=== PATIENT | male | born 1960 | race Caucasian/White ===

== ENCOUNTER 2017-12-21 10:14 | Observation (INO) ==
--- NOTE | 2017-12-21 12:02 | XR ---
EXAM DATE: 12/21/2017 11:44 AM EDT AGE/SEX: 57 years / Male INDICATIONS: Chest and jaw pain. CLINICAL DATA: This is the patient's initial encounter. Patient reports that signs and symptoms have been present for 2 days and indicates a pain score of 3/10. MEDICAL/SURGICAL HISTORY: None. None. COMPARISON: No prior exams available for comparison. FINDINGS: A single AP view of the chest demonstrates the lungs to be symmetrically aerated without evidence of mass, infiltrate or effusion. The cardiomediastinal contours are unremarkable. Osseous structures a re intact. CONCLUSION: Negative examination. Electronically signed by: Live Negron MD 12/21/2017 11:47 AM EDT
--- NOTE | 2017-12-21 12:06 | ED ---
HPI General Chief complaint: Respiratory Symptoms Stated complaint: Chest Pain Time Seen by Provider: 12/21/17 11:23 Source: patient Mode of arrival: ambulatory Limitations: no limitations History of Present Illness HPI narrative: Patient is a 57 year old male who comes in complaining of chest pain and shortness of breath. He says since 2 AM he has felt a squeezing in his chest that mostly comes on when he tries to breath. He says the pain is in the center of his chest and it radiates up to his jaw. He says that he has to walk slowly because the walking brings on the pain. He denies nausea or vomiting. He denies leg swelling or pain. He takes a baby aspirin in the morning. He says he has never had this before. He denies cough or cold symptoms. Severity is mild to moderate. Related Data Home Medications Medication Instructions Recorded Confirmed aspirin 81 mg PO DAILY 12/21/17 12/21/17 Previous Rx's Medication Instructions Recorded lisinopril 10 mg PO DAILY #30 tab 12/22/17 Allergies Allergy/AdvReac Type Severity Reaction Status Date / Time No Known Allergies Allergy Unverified 12/21/17 11:19 Review of Systems Except as stated in HPI: all other systems reviewed are negative Constitutional Denies chills and Denies fever(s) Eyes Denies blurry vision ENT Denies dizziness Cardiovascular Reports chest pain Respiratory Denies cough and Reports dyspnea on exertion Gastrointestinal Denies nausea and Denies vomiting Musculoskeletal Denies myalgias and Denies arthralgias Integumentary/Breasts Denies change in pigmentation and Denies lesions Neurologic Denies focal weakness and Denies numbness [facility] Medical History Medical History HTN (hypertension) (Acute) Stroke (Acute) Surgical History Surgical History Hx of appendectomy (Acute) Social History Social History Substance History: No History of Abuse Second Hand Smoke Exposure: No Smoking Status: Never smoker How Often Do You Have a Drink Containing Alcohol: Never Hx Recent Travel: No Recent Travel in [facility] within the Last 8 Weeks: No Recent Out of Country Travel within the Last 8 Weeks: No Immunization History Tetanus Immunization: Unsure Hx Influenza Vaccine This Season: No Exam Narrative Exam Narrative: GENERAL: Awake and alert, in no acute distress. SKIN: Focused skin assessment warm/dry. HEAD: Atraumatic. Normocephalic. EYES: Pupils equal and round. No scleral icterus. ENT: Mucous membranes pink and moist. NECK: Trachea midline. No JVD. CARDIOVASCULAR: Regular rate and rhythm. No murmur appreciated. RESPIRATORY: No accessory muscle use. Clear to auscultation. Breath sounds equal bilaterally. GASTROINTESTINAL: Abdomen soft, non-tender, nondistended. MUSCULOSKELETAL: No obvious deformities. No clubbing. No cyanosis. No edema. NEUROLOGICAL: Awake and alert. No obvious cranial nerve deficits. Motor grossly within normal limits. Normal speech. PSYCHIATRIC: Appropriate mood and affect; insight and judgment normal. Course Initial Documented Vital Signs Temperature 99.1 F 12/21/17 10:23 Pulse Rate 88 12/21/17 10:23 Respiratory Rate 18 12/21/17 10:23 Blood Pressure 159/94 H 12/21/17 10:23 Pulse Oximetry 97 12/21/17 10:23 Last Documented Vital Signs Temperature 97.9 F 12/22/17 12:00 Pulse Rate 79 12/22/17 12:00 Respiratory Rate 16 12/22/17 12:00 Blood Pressure 139/97 H 12/22/17 12:00 Pulse Oximetry 97 12/22/17 12:00 Medical Decision Making MDM Narrative Medical decision making narrative: Patient is a 57 year old male who comes in complaining of chest pain and dyspnea on exertion. Exam shows no acute abnormalities. IV established, labs sent, patient connected to the youth nutritional monitor. Labs show no acute abnormalities. CTA performed shows no evidence of PE Given Aspirin and nitro. Patient did report some relief of symptoms from nitro. Placed in chest pain center for further management. Differential Diagnosis Differential Diagnosis: pneumonia vs ACS vs NSTEMI vs PE Medical Records Medical records reviewed: Yes I reviewed the patient's medical records. Lab Data Lab results reviewed: Yes I reviewed the patient's lab results. Result diagrams: 12/21/17 11:45 12/21/17 06:12 Lab Results 12/21/17 12/21/17 12/21/17 Range/Units 06:12 11:45 11:45 WBC 7.8 (4.0-11.0) th/mm3 RBC 4.77 (4.50-5.90) mil/mm3 Hgb 14.5 (13.0-17.0) gm/dL Hct 42.7 (39.0-51.0) % MCV 89.6 (80.0-100.0) fL MCH 30.4 (27.0-34.0) pg MCHC 33.9 (32.0-36.0) % RDW 14.0 (11.6-17.2) % Plt Count 259 (150-450) th/mm3 MPV 8.6 (7.0-11.0) fL Neut % (Auto) 65.6 (16.0-70.0) % Lymph % (Auto) 24.2 (9.0-44.0) % [place] % (Auto) 9.4 H (0.0-8.0) % Eos % (Auto) 0.5 (0.0-4.0) % Baso % (Auto) 0.3 (0.0-2.0) % Neut # (Auto) 5.1 (1.8-7.7) th/mm3 Lymph # (Auto) 1.9 (1.0-4.8) th/mm3 [place] # (Auto) 0.7 (0.0-0.9) th/mm3 Eos # (Auto) 0.0 (0.0-0.4) th/mm3 Baso # (Auto) 0.0 (0.0-0.2) th/mm3 WBC Differential . Differential Comment Auto diff final PT 10.3 (9.8-11.6) sec INR 1.0 Ratio APTT 25.4 (24.3-30.1) sec Sodium 138 (136-145) meq/L Potassium 4.5 (3.5-5.1) meq/L Chloride 102 (98-107) meq/L Carbon Dioxide 29.6 (21.0-32.0) meq/L Anion Gap 6 (5-15) meq/L BUN 14 (7-18) mg/dL Creatinine 1.22 (0.60-1.30) mg/dL Estimated GFR 61 L (>89) mL/min Random Glucose 80 (74-106) mg/dL Calcium 8.8 (8.5-10.1) mg/dL Total Bilirubin 0.5 (0.2-1.0) mg/dL AST 19 (15-37) U/L ALT 22 (12-78) U/L Alkaline Phosphatase 53 (45-117) U/L Total Creatine Kinase 225 (39-308) U/L CK-MB (CK-2) 1.8 (0.5-3.6) ng/mL Troponin I Less than 0.02 L (0.02-0.05) ng/mL B-Natriuretic Peptide (0-100) pg/mL Total Protein 8.3 H (6.4-8.2) g/dL Albumin 4.2 (3.4-5.0) g/dL Triglycerides (42-150) mg/dL Cholesterol (120-200) mg/dL LDL Cholesterol, Calc (0-99) mg/dL HDL Cholesterol (40.0-60.0) mg/dL Cholesterol/HDL Ratio Ratio 12/21/17 12/21/17 12/21/17 Range/Units 11:45 16:10 19:30 WBC (4.0-11.0) th/mm3 RBC (4.50-5.90) mil/mm3 Hgb (13.0-17.0) gm/dL Hct (39.0-51.0) % MCV (80.0-100.0) fL MCH (27.0-34.0) pg MCHC (32.0-36.0) % RDW (11.6-17.2) % Plt Count (150-450) th/mm3 MPV (7.0-11.0) fL Neut % (Auto) (16.0-70.0) % Lymph % (Auto) (9.0-44.0) % [place] % (Auto) (0.0-8.0) % Eos % (Auto) (0.0-4.0) % Baso % (Auto) (0.0-2.0) % Neut # (Auto) (1.8-7.7) th/mm3 Lymph # (Auto) (1.0-4.8) th/mm3 [place] # (Auto) (0.0-0.9) th/mm3 Eos # (Auto) (0.0-0.4) th/mm3 Baso # (Auto) (0.0-0.2) th/mm3 WBC Differential Differential Comment PT (9.8-11.6) sec INR Ratio APTT (24.3-30.1) sec Sodium (136-145) meq/L Potassium (3.5-5.1) meq/L Chloride (98-107) meq/L Carbon Dioxide (21.0-32.0) meq/L Anion Gap (5-15) meq/L BUN (7-18) mg/dL Creatinine (0.60-1.30) mg/dL Estimated GFR (>89) mL/min Random Glucose (74-106) mg/dL Calcium (8.5-10.1) mg/dL Total Bilirubin (0.2-1.0) mg/dL AST (15-37) U/L ALT (12-78) U/L Alkaline Phosphatase (45-117) U/L Total Creatine Kinase 175 156 (39-308) U/L CK-MB (CK-2) (0.5-3.6) ng/mL Troponin I Less than 0.02 L Less than 0.02 L (0.02-0.05) ng/mL B-Natriuretic Peptide 11 (0-100) pg/mL Total Protein (6.4-8.2) g/dL Albumin (3.4-5.0) g/dL Triglycerides (42-150) mg/dL Cholesterol (120-200) mg/dL LDL Cholesterol, Calc (0-99) mg/dL HDL Cholesterol (40.0-60.0) mg/dL Cholesterol/HDL Ratio Ratio 08/02/18 Range/Units 06:02 WBC (4.0-11.0) th/mm3 RBC (4.50-5.90) mil/mm3 Hgb (13.0-17.0) gm/dL Hct (39.0-51.0) % MCV (80.0-100.0) fL MCH (27.0-34.0) pg MCHC (32.0-36.0) % RDW (11.6-17.2) % Plt Count (150-450) th/mm3 MPV (7.0-11.0) fL Neut % (Auto) (16.0-70.0) % Lymph % (Auto) (9.0-44.0) % [place] % (Auto) (0.0-8.0) % Eos % (Auto) (0.0-4.0) % Baso % (Auto) (0.0-2.0) % Neut # (Auto) (1.8-7.7) th/mm3 Lymph # (Auto) (1.0-4.8) th/mm3 [place] # (Auto) (0.0-0.9) th/mm3 Eos # (Auto) (0.0-0.4) th/mm3 Baso # (Auto) (0.0-0.2) th/mm3 WBC Differential Differential Comment PT (9.8-11.6) sec INR Ratio APTT (24.3-30.1) sec Sodium (136-145) meq/L Potassium (3.5-5.1) meq/L Chloride (98-107) meq/L Carbon Dioxide (21.0-32.0) meq/L Anion Gap (5-15) meq/L BUN (7-18) mg/dL Creatinine (0.60-1.30) mg/dL Estimated GFR (>89) mL/min Random Glucose (74-106) mg/dL Calcium (8.5-10.1) mg/dL Total Bilirubin (0.2-1.0) mg/dL AST (15-37) U/L ALT (12-78) U/L Alkaline Phosphatase (45-117) U/L Total Creatine Kinase (39-308) U/L CK-MB (CK-2) (0.5-3.6) ng/mL Troponin I (0.02-0.05) ng/mL B-Natriuretic Peptide (0-100) pg/mL Total Protein (6.4-8.2) g/dL Albumin (3.4-5.0) g/dL Triglycerides 129 (42-150) mg/dL Cholesterol 207 H (120-200) mg/dL LDL Cholesterol, Calc 127 H (0-99) mg/dL HDL Cholesterol 53.9 (40.0-60.0) mg/dL Cholesterol/HDL Ratio 3.84 Ratio Imaging Data Radiologist's impression: Chest X-Ray 12/21/17 11:30 CONCLUSION: Negative examination. Chest CTA 12/21/17 13:09 CONCLUSION: 1. No evidence for pulmonary embolism. Myocardial Perfusion Scan Nuc Med 12/22/17 00:00 CONCLUSION: 1. No reversible perfusion defect to indicate stress-induced myocardial ischemia identified. ECG Data EKG Prior to Arrival: No Attestation: I personally reviewed and interpreted this ECG as follows: Interpretation: ECG shows NSR, no ST elevation or depression Discharge Plan Discharge Disposition Patient Disposition: 01 Discharge Home Discharge Condition Condition: Good Discharge Order Discharge Orders: Discharge Order (Routine); Ordered 12/22/17 Ordered By: Carie Bojorquez Discharge Details Anticipated Discharge Date: 12/22/17 Physicians Team ED Provider: Fina Alvarado Primary Care Provider: Primary Care Chantelle Pichardo Attending Provider: Festus Mason Status ED Status: Left Department Discharge Information Discharge Date/Time: 12/21/17 15:30
[2017-12-21 12:34] LABS: Baso % (Auto) 0.3 % (0.0-2.0); Eos % (Auto) 0.5 % (0.0-4.0); Hematocrit 42.7 % (39.0-51.0); Hemoglobin 14.5 gm/dL (13.0-17.0); Lymph # (Auto) 1.9 th/mm3 (1.0-4.8); Lymph % (Auto) 24.2 % (9.0-44.0); Mean Corpuscular HGB Conc 33.9 % (32.0-36.0); Mean Corpuscular Hemoglobin 30.4 pg (27.0-34.0); Mean Corpuscular Volume 89.6 fL (80.0-100.0); Mean Platelet Volume 8.6 fL (7.0-11.0); Mono # (Auto) 0.7 th/mm3 (0.0-0.9); Mono % (Auto) 9.4 % (0.0-8.0); Neut # (Auto) 5.1 th/mm3 (1.8-7.7); Neut % (Auto) 65.6 % (16.0-70.0); Platelet Count 259 th/mm3 (150-450); Red Blood Count 4.77 mil/mm3 (4.50-5.90); White Blood Count 7.8 th/mm3 (4.0-11.0)
[2017-12-21 12:46] LABS: Activated Partial Thrombo Time 25.4 sec (24.3-30.1); Prothrombin Time 10.3 sec (9.8-11.6)
[2017-12-21 12:47] LABS: Albumin 4.2 g/dL (3.4-5.0); Anion Gap 6 meq/L (5-15); Aspartate Aminotransferase 19 U/L (15-37); Blood Urea Nitrogen 14 mg/dL (7-18); Calcium 8.8 mg/dL (8.5-10.1); Carbon Dioxide 29.6 meq/L (21.0-32.0); Chloride 102 meq/L (98-107); Glomerular Filtration Rate 61 mL/min (>89); Glucose,Random 80 mg/dL (74-106); Potassium 4.5 meq/L (3.5-5.1); Sodium 138 meq/L (136-145)
[2017-12-21 12:48] LABS: Alanine Aminotransferase 22 U/L (12-78)
[2017-12-21 12:52] LABS: Alkaline Phosphatase 53 U/L (45-117); Creatine Kinase 225 U/L (39-308); Total Protein 8.3 g/dL (6.4-8.2)
[2017-12-21 13:04] LABS: Creatine Kinase MB 1.8 ng/mL (0.5-3.6)
--- NOTE | 2017-12-21 14:47 | CT ---
EXAM DATE: 12/21/2017 2:40 PM EDT AGE/SEX: 57 years / Male INDICATIONS: Chest pain. CLINICAL DATA: This is the patient's initial encounter. Patient reports that signs and symptoms have been present for 1 day and indicates a pain score of 7/10. MEDICAL/SURGICAL HISTORY: Hypertension. Cardiovascular disease. Appendectomy. RADIATION DOSE: 21.83 CTDI (mGy) COMPARISON: C, CHEST 1V SINGLE AP, 12/21/2017. . TECHNIQUE: Volumetric scanning was performed using a multi-row detector CT scanner during bolus infu arturo of 75 ml Omnipaque 350 (iohexol) nonionic water-soluble contrast as a single exam dose. The lynn a was post processed with a variety of visualization algorithms including full volume maximum intensi ty projection and sliding thin slab reformation. Using automated exposure control and adjustment of the mA and/or kV according to patient size, radiation dose was kept as low as reasonably achievable t o obtain optimal diagnostic quality images. DICOM format image data is available electronically for review and comparison. FINDINGS: There are mild dependent atelectatic changes seen at the lung bases. No pleural or pericardial effusi ons. No evidence for pulmonary embolism. Osseous structures are intact. CONCLUSION: 1. No evidence for pulmonary embolism. Electronically signed by: Live Negron MD 12/21/2017 2:46 PM EDT
[2017-12-21] MEDS ORDERED: Acetaminophen 500 MG Tablet PO PRN (15:48)
--- NOTE | 2017-12-21 16:31 | P.HPCA ---
History of Present Illness Primary Care Physician: No Primary Care Physician Chief Complaint: Chest pain History of Present Illness: 57-year-old male with history of hypertension and CVA presents to the emergency room for further evaluation of chest pain. Onset 2 AM. Location substernal and left anterior chest. Characterized as squeezing and someone sitting on his chest during inspiration. No associated symptoms of nausea, vomiting, dyspnea, or diaphoresis. Duration constant. Moderate in severity. Discomfort made worst with movement, prolonged sitting, or deep breath. No precipitating or relieving factors. Denies similar pain in the past. No recent injury or illness. Quit taking ordered Plavix and amlodipine 3 months ago states "they made me feel loopy." Recently moved to [place] and has not established with a primary care provider. 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 Required 4 months of rehab therapy. - Diagnosis (1) Musculoskeletal chest pain (2) H/O: hypertension (3) H/O: CVA (cerebrovascular accident) Review of Systems All other systems reviewed negative except as stated in HPI PMFSH - History History Provided By: Patient - Medical History Medical History: Medical History (Last Reviewed 12/21/17 @ 12:10 by Fina Alvarado MD) HTN (hypertension) Stroke - Surgical History Surgical History: Surgical History (Last Reviewed 12/21/17 @ 12:10 by Fina Alvarado MD) Hx of appendectomy - Tobacco History Second Hand Smoke Exposure: No Tobacco Use In Past 30 Days: No Smoking Status: Never smoker - Alcohol History How Often Do You Have a Drink Containing Alcohol: Never - Substance Use History Substance History: No History of Abuse - Travel History History of Recent Travel: No Recent Travel in the [place] Within the Last 8 Weeks: No Recent Travel Out of the Country Within the Last 8 Weeks: No - Immunization History Tetanus Immunization: Unsure Hx Influenza Vaccine This Season: No Medications and Allergies Active Medications: Active Medications Acetaminophen (Tylenol) 500 mg PO Q4H PRN PRN Reason: HEADACHE Aspirin (Aspirin) 325 mg PO DAILY YOGI Nitroglycerin (Nitrostat Sl) 0.4 mg SL Q5M PRN PRN Reason: CHEST PAIN Sodium Chloride (Ns Flush) 2 ml IV.FLUSH UNSCH PRN PRN Reason: FLUSH AFTER USING IV ACCESS Sodium Chloride (Ns Flush) 2 ml IV.FLUSH BID YOGI Allergies Allergy/AdvReac Type Severity Reaction Status Date / Time No Known Allergies Allergy Unverified 12/21/17 11:19 Home Medications Medication Instructions Recorded Confirmed Type aspirin 81 mg PO DAILY 12/21/17 12/21/17 History Exam Vital signs: Vital Signs 12/21/17 10:23 12/21/17 11:30 Temperature 99.1 F Pulse Rate 88 Respiratory Rate 18 Blood Pressure 159/94 H Pulse Oximetry 97 97 Intake & Output 12/20/17 12/21/17 12/21/17 18:59 06:59 18:59 Weight 105.233 kg - Constitutional no acute distress, obese, cooperative - Routine HEENT Exam Head: Present: normocephalic, atraumatic Eye: Present: EOMI, PERRL, normal accommodation ENT: Present: mucous membranes moist - Routine Neck Exam Present: supple, full ROM. Absent: JVD, carotid bruit - Routine Chest/Breast/Axilla Exam Chest wall: Present: tenderness - Routine Respiratory Exam Present: CTA bilaterally. Absent: rhonchi, wheezes, crackles - Routine Cardiovascular Exam Present: RRR. Absent: murmur, gallop, rubs - Routine Abdominal Exam Present: soft, normoactive bowel sounds. Absent: tenderness, firm - Routine Extremities Exam Present: full ROM, pulses intact. Absent: edema - Routine Skin Exam Present: intact, warm - Routine Neurological Exam Present: alert, oriented X3, CN II-XII intact, moving all extremities, normal tone, normal speech - Routine Psychiatric Exam Present: normal affect, normal thought process. Absent: good insight, good judgment Comments: Questionable insight and judgment regarding noncompliance with medication with history of CVA and hypertension. Became somewhat angry and agitated with education regarding compliance with medication. Results 12/21/17 11:45 12/21/17 06:12 Cardiac Enzymes 12/21/17 12/21/17 Range/Units 06:12 11:45 AST 19 (15-37) U/L CK-MB (CK-2) 1.8 (0.5-3.6) ng/mL Troponin I Less than 0.02 L (0.02-0.05) ng/mL B-Natriuretic Peptide 11 (0-100) pg/mL Coagulation 12/21/17 12/21/17 Range/Units 11:45 11:45 PT 10.3 (9.8-11.6) sec APTT 25.4 (24.3-30.1) sec B-Natriuretic Peptide 11 (0-100) pg/mL CBC 12/21/17 Range/Units 11:45 WBC 7.8 (4.0-11.0) th/mm3 RBC 4.77 (4.50-5.90) mil/mm3 Hgb 14.5 (13.0-17.0) gm/dL Hct 42.7 (39.0-51.0) % Plt Count 259 (150-450) th/mm3 Neut # (Auto) 5.1 (1.8-7.7) th/mm3 Lymph # (Auto) 1.9 (1.0-4.8) th/mm3 [place] # (Auto) 0.7 (0.0-0.9) th/mm3 Eos # (Auto) 0.0 (0.0-0.4) th/mm3 Baso # (Auto) 0.0 (0.0-0.2) th/mm3 Comprehensive Metabolic Panel 12/21/17 Range/Units 06:12 Sodium 138 (136-145) meq/L Potassium 4.5 (3.5-5.1) meq/L Chloride 102 (98-107) meq/L Carbon Dioxide 29.6 (21.0-32.0) meq/L BUN 14 (7-18) mg/dL Creatinine 1.22 (0.60-1.30) mg/dL Calcium 8.8 (8.5-10.1) mg/dL AST 19 (15-37) U/L ALT 22 (12-78) U/L Alkaline Phosphatase 53 (45-117) U/L Total Protein 8.3 H (6.4-8.2) g/dL Albumin 4.2 (3.4-5.0) g/dL Intake and Output 12/21/17 12/21/17 12/21/17 06:59 14:59 22:59 Other: Weight 105.233 kg Patient Weight 12/22/17 06:59 Weight 105.233 kg EKG interpretations - EKG EKG results cardiology: sinus rhythm, normal axis, normal QRS, normal ST/T Caprini VTE Risk Assessment Caprini VTE Risk Assessment: No/Low Risk (score <= 1) Caprini Risk Assessment Model: Point Value = 1 Point Value = 2 Point Value = 3 Point Value = 5 Age 41-60 Minor surgery BMI > 25 kg/m2 Swollen legs Varicose veins or History of unexplained or recurrent spontaneous Oral contraceptives or hormone replacement Sepsis (< 1 month) Serious lung disease, including pneumonia (< 1 month) Abnormal pulmonary function Acute myocardial infarction Congestive heart failure (< 1 month) History of inflammatory bowel disease Medical patient at bed rest Age 61-74 Arthroscopic surgery Major open surgery (> 45 min) Laparoscopic surgery (> 45 min) Malignancy Confined to bed (> 72 hours) Immobilizing plaster cast Central venous access Age >= 75 History of VTE Family history of VTE Factor V Leiden Prothrombin [id number] Lupus anticoagulant Anticardiolipin antibodies Elevated serum homocysteine Heparin-induced thrombocytopenia Other congenital or acquired thrombophilia Stroke (< 1 month) Elective arthroplasty Hip, pelvis, or leg fracture Acute spinal cord injury (< 1 month) Prophylaxis Regimen: Total Risk Factor Score Risk Level Prophylaxis Regimen 0-1 Low Early ambulation 2 Moderate Order ONE of the following: *Sequential Compression Device (SCD) *Heparin 5000 units SQ BID 3-4 Higher Order ONE of the following medications: *Heparin 5000 units SQ TID *Enoxaparin/Lovenox 40 mg SQ daily (WT < 150 kg, CrCl > 30 mL/min) *Enoxaparin/Lovenox 30 mg SQ daily (WT < 150 kg, CrCl > 10-29 mL/min) *Enoxaparin/Lovenox 30 mg SQ BID (WT < 150 kg, CrCl > 30 mL/min) AND/OR *Sequential Compression Device (SCD) 5 or more Highest Order ONE of the following medications: *Heparin 5000 units SQ TID (Preferred with Epidurals) *Enoxaparin/Lovenox 40 mg SQ daily (WT < 150 kg, CrCl > 30 mL/min) *Enoxaparin/Lovenox 30 mg SQ daily (WT < 150 kg, CrCl > 10-29 mL/min) *Enoxaparin/Lovenox 30 mg SQ BID (WT < 150 kg, CrCl > 30 mL/min) AND *Sequential Compression Device (SCD) Assessment and Plan - Assessment (1) Musculoskeletal chest pain Code(s): R07.89 - Other chest pain Status: Acute Plan: Admitted chest pain center. Rule out ACS with 3 sets of EKGs and cardiac enzymes. Will be seen and evaluated by Dr. Charly Saenz. Discomfort clearly musculoskeletal, easily reproduced, and duration of symptoms makes cardiac unlikely. Toradol 30mg IV q6h x3 doses overnight. Reassure discomfort in am. Possible cardiac testing due to risk factors not unreasonable. Instructed to establish with a primary provider upon discharged. Made aware of local free or fee for service medical clinics. (2) H/O: hypertension Code(s): Z86.79 - Personal history of other diseases of the circulatory system Status: Chronic Plan: Continue to monitor. Begin lisinopril 10 mg, as patient states he did not tolerate amlodipine 5 mg. Education given on importance of tight blood pressure control, decreasing risks of additional stroke. Lifestyle modifications encouraged, however made aware not a substitute for prescribed antihypertensive medications. (3) H/O: CVA (cerebrovascular accident) Code(s): Z86.73 - Personal history of transient ischemic attack (TIA), and cerebral infarction without residual deficits Status: Resolved Plan: Aspirin 325 mg daily. Education provided importance of continuing Plavix as previously ordered. Taking 81 mg daily since stopping his Plavix a few months ago. Reinforcement will likely be required. Lipid panel in a.m.
--- NOTE | 2017-12-21 16:57 | ECG ---
Date Performed: 12/21/2017 Time Performed: 11:27:07 PTAGE: 57 years EKG: Sinus rhythm NORMAL ECG NO PREVIOUS TRACING DOCTOR: Fe Hansen Interpretating Date/Time 12/21/2017 16:55:45
[2017-12-21 16:58] LABS: Creatine Kinase 175 U/L (39-308)
[2017-12-21] MEDS: Lisinopril 10 MG Tablet PO SCH (17:21)
[2017-12-21] MEDS: Ketorolac Inj 30 MG/ML (IVP) Vial IV.PUSH SCH ×2 (17:24→22:27)
[2017-12-21 20:43] LABS: Creatine Kinase 156 U/L (39-308)
[2017-12-22] MEDS: Ketorolac Inj 30 MG/ML (IVP) Vial IV.PUSH SCH (05:37)
[2017-12-22 06:52] LABS: Chol/HDL Ratio 3.84 Ratio; HDL Cholesterol 53.9 mg/dL (40.0-60.0)
--- NOTE | 2017-12-22 08:13 | P.PNCA ---
Subjective Interval history: Chest discomfort much improved after Toradol doses administered. Able to move and take deep breaths without minimal discomfort. Slept well. No further complaints. Physical Exam Vital signs: Vital Signs 12/21/17 10:23 12/21/17 11:30 12/21/17 15:49 Temperature 99.1 F Pulse Rate 88 75 Respiratory Rate 18 20 Blood Pressure 159/94 H 134/88 Pulse Oximetry 97 97 97 12/21/17 16:00 12/21/17 20:00 12/21/17 23:47 Temperature 98.0 F 98.5 F 98.2 F Pulse Rate 73 75 64 Respiratory Rate 16 17 17 Blood Pressure 135/84 121/79 110/69 Pulse Oximetry 99 94 L 95 12/22/17 04:00 12/22/17 07:33 Temperature 98.4 F 97.5 F L Pulse Rate 65 76 Respiratory Rate 17 16 Blood Pressure 117/73 114/90 Pulse Oximetry 99 97 Intake & Output 12/21/17 12/22/17 12/22/17 18:59 06:59 18:59 Intake Total 400 / 400 Balance 400 / 400 Weight 105.233 kg Intake: Oral 400 / 400 Narrative: moderately obese male sitting on edge of bed in no acute distress. - Constitutional no acute distress - Routine HEENT Exam Head: Present: normocephalic, atraumatic - Routine Chest/Breast/Axilla Exam Chest wall: Absent: tenderness - Routine Cardiovascular Exam Present: RRR. Absent: murmur, gallop, rubs - Routine Extremities Exam Present: full ROM, pulses intact. Absent: edema - Routine Skin Exam Present: intact, warm - Routine Neurological Exam Present: alert, oriented X3, CN II-XII intact - Routine Psychiatric Exam Present: normal affect, normal thought process, cooperative, good insight, good judgment Assessment and Plan - Assessment (1) Musculoskeletal chest pain Code(s): R07.89 - Other chest pain Status: Acute Plan: Monitor on telemetry overnight. ACS ruled out with 3 sets of EKGs and cardiac enzymes. Toradol 30 mg IV 3 doses given. Discomfort nearly resolved, much improved. Will be seen and evaluated by Dr. Charly Saenz. Due to risk factors discussed likely will perform cardiac stress test prior to discharge, this will be determined after evaluation by dope pourer. If unremarkable, plans will be to discharge home with follow-up with PCP. (2) H/O: hypertension Code(s): Z86.79 - Personal history of other diseases of the circulatory system Status: Chronic Plan: Normotensive overnight. Tolerated lisinopril. Consider lisinopril upon discharge, as he did not feel well taking amlodipine. Encouraged increasing daily activity, weight loss, and following a low-sodium diet. Instructed to establish with a primary doctor (3) H/O: CVA (cerebrovascular accident) Code(s): Z86.73 - Personal history of transient ischemic attack (TIA), and cerebral infarction without residual deficits Status: Resolved Plan: Aspirin 325 mg daily. Education provided importance of continuing Plavix as previously ordered. Taking 81 mg daily since stopping his Plavix a few months ago. Continue education. Establish with PCP. Lipid panel drawn this morning. Dr Saenz instructed patient to follow up with PCP for cholesterol management. Verbalized understanding.
[2017-12-22] MEDS ORDERED: Aspirin 325 MG Tablet PO SCH (09:00)
[2017-12-22] MEDS: Lisinopril 10 MG Tablet PO SCH (09:33)
[2017-12-22] MEDS ORDERED: Regadenoson Inj 0.4 MG/5 ML Syringe IV.PUSH ONE (10:26)
--- NOTE | 2017-12-22 10:47 | ECG ---
Date Performed: 12/21/2017 Time Performed: 16:15:57 PTAGE: 57 years EKG: Sinus rhythm PREVIOUS TRACING : 12/21/2017 11.27 Since previous tracing, no significant change noted DOCTOR: Charly Saenz Interpretating Date/Time 12/22/2017 10:46:46
--- NOTE | 2017-12-22 10:49 | ECG ---
Date Performed: 12/21/2017 Time Performed: 20:07:35 PTAGE: 57 years EKG: Sinus rhythm Normal ECG PREVIOUS TRACING : 12/21/2017 11.27 Since previous tracing, no significant change noted Normal ECG DOCTOR: Charly Saenz Interpretating Date/Time 12/22/2017 10:48:49
--- NOTE | 2017-12-22 12:05 | NM ---
EXAM DATE: 12/22/2017 11:58 AM EDT AGE/SEX: 57 years / Male INDICATIONS:. . Angina. CLINICAL DATA: This is the patient's initial encounter. Patient reports that signs and symptoms have been present for 1 day and indicates a pain score of 2/10. MEDICAL/SURGICAL HISTORY: Hypertension. Appendectomy. COMPARISON: No prior exams available for comparison. DOSE: 11.6 mCi Tc 99m Myoview at rest 35.2 mCi [id number] at stress 0.4 mg Lexiscan STRESS SYMPTOMS: Dyspnea. EJECTION FRACTION: 60 % TECHNIQUE: The patient underwent pharmacologic stress with infusion of prescribed dose. Continuous ECG tracing was monitored during stress. Gated SPECT imaging was performed after stress and conventi onal SPECT imaging was performed at rest. The examination was performed on a SPECT/CT scanner, both attenuation and non-corrected datasets were reviewed. FINDINGS: Distribution: The maximum perfused segment at stress is in the septal wall. Perfusion Study: The pattern of perfusion at stress is within normal limits. Gated Study: There are intact wall motion and wall thickening without hypokinetic or dyskinetic segm ents. The ejection fraction is calculated at 60%. RISK CATEGORY: Low (<1% Annual Motality Rate) CONCLUSION: 1. No reversible perfusion defect to indicate stress-induced myocardial ischemia identified. Electronically signed by: Talha Carpenter MD 12/22/2017 12:03 PM EDT
--- NOTE | 2017-12-23 14:02 | TR ---
Date Performed: 12/22/2017 Time Performed: 10:25:51 DOCTOR: Charly Saenz DRUG LIST: CLINICAL HISTORY: REASON FOR TEST: REASON FOR ENDING: OBSERVATION: CONCLUSION: COMMENTS: Lexiscan stress test was performed under standard four minute protocol. Radionuclide was injected one minute prior to ending the test. No electrocardiographic abormalities were present t o suggest ischemia. Nuclear imaging and interpretation are pending.
== END 2017-12-22 15:30 | disposition home or self-care (01) ==
LOC: NEDA 10:14 → NEPD 10:14 → NEPHCDU 10:14
PROVIDERS: ADMIT Internal Medicine Interventional Cardiology; ATTEND Internal Medicine Interventional Cardiology
DX: Z90.49 Acquired absence of other specified parts of digestive tract; R07.89 Other chest pain; E66.9 Obesity, unspecified; I10 Essential (primary) hypertension; Z79.82 Long term (current) use of aspirin; Z86.73 Personal history of transient ischemic attack (TIA), and cerebral infarction without residual deficits